=== PATIENT | male | born 1970 | race Caucasian/White ===

== ENCOUNTER 2025-02-28 11:25 | Outpatient (CLI) | payer MEDICAID, SELFPAY ==
--- NOTE | 2025-02-28 10:45 | DI.RAD_ITS ---
Exam(s) XR ANKLE RT COMPLETE EXAM: XR ANKLE RT COMPLETE CLINICAL HISTORY: medial ankle pain, injury 2 weeks ago [id number]. TECHNIQUE: 2D digital imaging was performed. COMPARISON: No exams were available for comparison FINDINGS: 3 views No evidence of acute fracture nor widening the ankle mortise. Talar dome unremarkable. Bone density normal. No osseous Lesions. There appears to be some mild soft tissue swelling medially. IMPRESSION: Some medial soft tissue swelling noted but no acute fractures evident. DATA REPOSITORY: RADIATION DOSE DELIVERED:
== END 2025-02-28 11:45 ==
LOC: DI 11:25
PROVIDERS: Visit Provider Physician Assistant
DX: M25.571 Pain in right ankle and joints of right foot (principal)
CPT/HCPCS: 73610